=== PATIENT | female | born 1975 | race Caucasian/White ===

== ENCOUNTER → 2018-10-03 | Outpatient (CLI) | payer OTHER ==
[~2018-10-03] MED LIST: GADOBUTROL 7.5 MMOL/7.5 ML PFS ONE
== END | disposition home or self-care (01) ==
LOC: CFH 08:06
PROVIDERS: ATTEND Family Medicine
DX: G93.89 Other specified disorders of brain (principal); J34.1 Cyst and mucocele of nose and nasal sinus; M79.601 Pain in right arm
CPT/HCPCS: 70553; A9585

== ENCOUNTER → 2018-10-04 | Outpatient (CLI) | payer OTHER ==
[~2018-10-04] MED LIST changes: -GADOBUTROL 7.5 MMOL/7.5 ML PFS ONE; +OMNIPAQUE 350 MG/ML, 100ML BOTTLE ONE
== END | disposition home or self-care (01) ==
LOC: RAD 11:21
PROVIDERS: ATTEND Family Medicine
DX: R29.898 Other symptoms and signs involving the musculoskeletal system (principal)
CPT/HCPCS: 70496; 70498; Q9967

== ENCOUNTER 2018-10-31 05:59 | Day surgery (SDC) | payer OTHER ==
[~2018-10-31] VITALS: Ht 162.6 cm; Wt 62.0 kg
[2018-10-31 06:45] VITALS: BP 102/65
[2018-10-31] MEDS ORDERED: SODIUM CHLORIDE 0.9% 1,000 ML IV SCH (06:52)
[2018-10-31] MEDS ORDERED: LIDOCAINE-MPF 1%, 5ML ONE (08:05)
[2018-10-31 11:14] LABS: GLUCOSE, CSF 47 mg/dL (40-80); TOTAL PROTEIN,CSF 35 mg/dL (15-45)
== END 2018-10-31 12:55 | disposition home or self-care (01) ==
LOC: OUT 05:59
PROVIDERS: ATTEND Specialist
DX: G35 Multiple sclerosis (principal); J45.909 Unspecified asthma, uncomplicated; Z86.73 Personal history of transient ischemic attack (TIA), and cerebral infarction without residual deficits
CPT/HCPCS: 36415; 62270; 77003; 82040; 82042; 82164; 82784; 82945; 83873; 84157; 86316; 86592; 86645; 86695; 86696; 86762; 86777; 86778; 86790; 87070; 87205; 87476; 87529; 87798; 88108; 89051; J7030

== ENCOUNTER 2019-05-15 17:33 | Inpatient (IN) | payer OTHER ==
[~2019-05-15] VITALS: Ht 162.6 cm; Wt 61.2 kg
[~2019-05-15 17:33] MED LIST changes: +FAMO-79 PO; +FAMO40TA61 PO; +LORA1TAB46 PO; +MULT-658 PO; -OMNIPAQUE 350 MG/ML, 100ML BOTTLE ONE; +UBID1CAP53 PO
--- NOTE | 2019-05-15 17:54 | NUR ---
FIRST CONTACT WITH PT. PT C/O PROGRESSIVE WEAKNESS IN LEGS, SOTO, "CANT WALK FOR 5 MIN" PT'S AOX4. RESPS EVEN AND UNLABORED. BP/SPO2 MONITORS IN PLACE. CALL LIGHT WITHIN REACH. EDMD AT BEDSIDE TO EVALUATE AT THIS TIME.
--- NOTE | 2019-05-15 17:58 | NUR ---
PT AMB TO [facility] STEADY GAIT FOR UA.
--- NOTE | 2019-05-15 18:00 | NUR ---
PT IS NOT ABLE TO PROVIDE URINE SAMPLE AT THIS TIME. PT AWARES OF UA.
[2019-05-15 18:33] LABS: ALANINE AMINOTRANSFERASE 18 U/L (12-78); ALBUMIN 3.8 g/dL (3.4-5.0); ANION GAP 6 mmol/L (5-15); C-REACTIVE PROTEIN, QUANT 0.04 mg/dL (0.02-0.49); CALCIUM 8.7 mg/dL (8.5-10.1); CHLORIDE 109 mmol/L (98-107)
[2019-05-15 18:36] LABS: ALKALINE PHOSPHATASE 50 U/L (45-117); BILIRUBIN,TOTAL 0.2 mg/dL (0.2-1.0); CREATININE 0.98 mg/dL (0.55-1.02)
[2019-05-15 18:39] LABS: BASOPHILS # (AUTO) 0.05 x10^3/uL (0-0.1); BASOPHILS % (AUTO) 1 % (0-1); EOSINOPHILS # (AUTO) 0.14 x10^3/uL (0-0.4); EOSINOPHILS % (AUTO) 2 % (1-7); LYMPHOCYTES # (AUTO) 1.74 x10^3/uL (1-3.4); LYMPHOCYTES % (AUTO) 22 % (22-44); MD NO; MEAN CORPUSCULAR HEMOGLOBIN 30.7 pg (27.0-34.8); MEAN CORPUSCULAR HGB CONC 32.7 g/dL (32.4-35.8); MEAN CORPUSCULAR VOLUME 93.9 fL (80-100); MEAN PLATELET VOLUME 9.6 fL (7.4-10.4); MONOCYTES # (AUTO) 0.47 x10^3/uL (0.2-0.8); MONOCYTES % (AUTO) 6 % (2-9); NEUTROPHILS # (AUTO) 5.63 x10^3/uL (1.8-6.8); NEUTROPHILS % (AUTO) 70 % (42-75); PLATELET COUNT 231 x10^3/uL (130-400); RED BLOOD COUNT 4.62 x10^6/uL (3.82-5.3); RED CELL DISTRIBUTION WIDTH 13.4 % (9.6-15.2)
[2019-05-15 18:41] LABS: FREE T4 (FREE THYROXINE) 1.01 ng/dL (0.76-1.46)
--- NOTE | 2019-05-15 18:57 | NUR ---
REPORT GIVEN TO XANDER KUMAR.
--- NOTE | 2019-05-15 19:20 | NUR ---
HOSPITALIST AT BEDSIDE TO ADMIT PT
[2019-05-15 19:44] LABS: HCT (SEDRATE) 43.6 % (34.6-47.8)
[2019-05-15] MEDS ORDERED: ONDANSETRON ODT 4 MG PO PRN (20:00)
[2019-05-15] MEDS ORDERED: ACETAMINOPHEN 325 MG TABLET PO PRN (20:00)
[2019-05-15] MEDS ORDERED: DOCUSATE 100 MG CAPSULE PO PRN (20:00)
[2019-05-15] MEDS ORDERED: TEMAZEPAM 15 MG CAPSULE PO PRN (20:00)
--- NOTE | 2019-05-15 20:22 | NUR ---
REPORT CALLED TO FLOOR RN. ALL QUESTIONS ADDRESSED AT THIS TIME
[2019-05-15 20:35] VITALS: BP 120/78
[2019-05-15] MEDS ORDERED: LIDODERM 5% PATCH TD PRN (21:00)
[2019-05-15 22:42] LABS: MICROSCOPIC AUTO
[2019-05-15 22:43] LABS: CULTURE INDICATED? NO
[2019-05-15 22:57] LABS: AMPHETAMINE SCREEN, URINE Negative (Negative); BARBITURATE SCREEN, URINE Negative (Negative); BENZODIAZEPINE SCREEN, URINE Negative (Negative); CANNABINOID SCREEN, URINE Negative (Negative); COCAINE SCREEN, URINE Negative (Negative); METHADONE SCREEN, URINE Negative (Negative); OPIATE SCREEN, URINE Negative (Negative)
[2019-05-16 04:00] VITALS: BP 126/64
[2019-05-16 06:01] LABS: CHLORIDE 111 mmol/L (98-107)
[2019-05-16 06:12] LABS: BASOPHILS # (AUTO) 0.04 x10^3/uL (0-0.1); BASOPHILS % (AUTO) 1 % (0-1); EOSINOPHILS # (AUTO) 0.19 x10^3/uL (0-0.4); EOSINOPHILS % (AUTO) 3 % (1-7); LYMPHOCYTES # (AUTO) 2.04 x10^3/uL (1-3.4); LYMPHOCYTES % (AUTO) 33 % (22-44); MD NO; MEAN CORPUSCULAR HEMOGLOBIN 30.6 pg (27.0-34.8); MEAN CORPUSCULAR HGB CONC 32.5 g/dL (32.4-35.8); MEAN CORPUSCULAR VOLUME 94.3 fL (80-100); MEAN PLATELET VOLUME 9.6 fL (7.4-10.4); MONOCYTES # (AUTO) 0.51 x10^3/uL (0.2-0.8); MONOCYTES % (AUTO) 8 % (2-9); NEUTROPHILS # (AUTO) 3.41 x10^3/uL (1.8-6.8); NEUTROPHILS % (AUTO) 55 % (42-75); PLATELET COUNT 200 x10^3/uL (130-400); RED BLOOD COUNT 4.67 x10^6/uL (3.82-5.3); RED CELL DISTRIBUTION WIDTH 13.2 % (9.6-15.2)
[2019-05-16 06:14] LABS: ANION GAP 7 mmol/L (5-15); CALCIUM 8.8 mg/dL (8.5-10.1); CREATININE 0.89 mg/dL (0.55-1.02)
[2019-05-16 06:44] VITALS: BP 123/72
[2019-05-16] MEDS ORDERED: methylPREDNISolone SOD SUCC 40 MG/ML IV SCH (10:30)
[2019-05-16] MEDS ORDERED: GADOTERATE 10 MMOL/20 ML SYR ONE (13:58)
[2019-05-16 15:23] VITALS: BP 114/74
[2019-05-16] MEDS ORDERED: FAMOTIDINE 20 MG TABLET PO PRN (19:30)
[2019-05-16 19:52] VITALS: BP 104/68
[2019-05-17 04:36] VITALS: BP 106/70
[2019-05-17 07:56] VITALS: BP 108/68
[2019-05-17 13:07] VITALS: BP 105/67
[2019-05-17] MEDS ORDERED: METH1000 IV (14:52)
[2019-05-17 16:10] VITALS: BP 111/61
[2019-05-17] MEDS ORDERED: FAMOTIDINE 20 MG TABLET PO PRN (16:30)
== END 2019-05-17 16:25 | disposition home or self-care (01) | DRG 60 ==
LOC: ED 18:56 → EDIP 19:46 → 4NE 20:30
PROVIDERS: ADMIT Internal Medicine; ATTEND Internal Medicine
DX: G35 Multiple sclerosis (principal); J45.909 Unspecified asthma, uncomplicated; Z82.61 Family history of arthritis; Z83.3 Family history of diabetes mellitus; G37.9 Demyelinating disease of central nervous system, unspecified; Z88.8 Allergy status to other drugs, medicaments and biological substances; K21.9 Gastro-esophageal reflux disease without esophagitis
CPT/HCPCS: 36415; 70553; 80048; 80053; 80307; 81001; 83516; 83520; 83735; 84439; 84443; 84703; 85025; 85651; 86038; 86140; 86160; 86225; 86235; 86255; 86256; 86376; 86430; G0378; J2930; A9575

== ENCOUNTER 2019-11-23 11:10 | Outpatient (CLI) | payer OTHER ==
[~2019-11-23 11:10] MED LIST changes: +METH1000 IV
[2019-11-23 11:32] LABS: BASOPHILS # (AUTO) 0.06 x10^3/uL (0-0.1); BASOPHILS % (AUTO) 1 % (0-1); EOSINOPHILS % (AUTO) 2 % (1-7); LYMPHOCYTES # (AUTO) 1.33 x10^3/uL (1-3.4); LYMPHOCYTES % (AUTO) 26 % (22-44); MD NO; MEAN CORPUSCULAR HEMOGLOBIN 29.7 pg (27.0-34.8); MEAN CORPUSCULAR HGB CONC 33.5 g/dL (32.4-35.8); MEAN CORPUSCULAR VOLUME 88.6 fL (80-100); MEAN PLATELET VOLUME 8.9 fL (7.4-10.4); MONOCYTES % (AUTO) 10 % (2-9); NEUTROPHILS # (AUTO) 3.07 x10^3/uL (1.8-6.8); NEUTROPHILS % (AUTO) 61 % (42-75); PLATELET COUNT 274 x10^3/uL (130-400); RED BLOOD COUNT 4.62 x10^6/uL (3.82-5.3); RED CELL DISTRIBUTION WIDTH 13.9 % (9.6-15.2)
[2019-11-23 12:26] LABS: ALBUMIN 3.8 g/dL (3.4-5.0); ANION GAP 7 mmol/L (5-15); CALCIUM 8.7 mg/dL (8.5-10.1); CHLORIDE 107 mmol/L (98-107)
[2019-11-23 12:35] LABS: ALANINE AMINOTRANSFERASE 27 U/L (12-78); ALKALINE PHOSPHATASE 46 U/L (45-117); BILIRUBIN,TOTAL 0.7 mg/dL (0.2-1.0); CHOL/HDL RATIO 2.8; CHOLESTEROL, TOTAL 201 mg/dL (140-239); CREATININE 1.13 mg/dL (0.55-1.02); FREE T4 (FREE THYROXINE) 1.14 ng/dL (0.76-1.46); HDL CHOL % 36 % (28-40); HDL CHOLESTEROL (DIRECT) 73 mg/dL (40-60); LDL CHOLESTEROL,CALCULATED 116 mg/dL (54-169); LDL/HDL RATIO 1.6 (0.5-3.0); TOTAL PROTEIN 6.9 g/dL (6.4-8.2); TRIGLYCERIDES 61 mg/dL (50-200); VLDL CHOLESTEROL 12 mg/dL (0-25)
== END 2019-11-23 23:59 | disposition home or self-care (01) ==
LOC: LAB 11:10
PROVIDERS: ATTEND Family Medicine
DX: Z13.220 Encounter for screening for lipoid disorders (principal); Z13.1 Encounter for screening for diabetes mellitus; Z01.419 Encounter for gynecological examination (general) (routine) without abnormal findings; Z11.51 Encounter for screening for human papillomavirus (HPV); Z11.3 Encounter for screening for infections with a predominantly sexual mode of transmission; M62.81 Muscle weakness (generalized)
CPT/HCPCS: 36415; 80053; 80061; 82175; 82570; 83655; 83825; 84439; 84443; 85025; 86592; 86803; 87806; G0475

== ENCOUNTER → 2020-02-23 | Outpatient (CLI) | payer OTHER | END | disposition home or self-care (01) | LOC: CVU 10:15 | PROVIDERS: ATTEND Family Medicine | DX: M62.81 Muscle weakness (generalized) (principal); R20.9 Unspecified disturbances of skin sensation; R29.898 Other symptoms and signs involving the musculoskeletal system; R90.89 Other abnormal findings on diagnostic imaging of central nervous system | CPT/HCPCS: 93306 ==

== ENCOUNTER → 2020-10-24 | Outpatient (CLI) | payer OTHER ==
[2020-10-24 14:08] LABS: BASOPHILS % (AUTO) 1 % (0-1); EOSINOPHILS % (AUTO) 1 % (1-7); LYMPHOCYTES % (AUTO) 21 % (22-44); MEAN CORPUSCULAR HEMOGLOBIN 29.3 pg (27.0-34.8); MEAN CORPUSCULAR HGB CONC 33.2 g/dL (32.4-35.8); MEAN PLATELET VOLUME 8.9 fL (7.4-10.4); MONOCYTES % (AUTO) 8 % (2-9); NEUTROPHILS % (AUTO) 69 % (42-75); PLATELET COUNT 272 x10^3/uL (130-400); RED BLOOD COUNT 4.84 x10^6/uL (3.82-5.3); RED CELL DISTRIBUTION WIDTH 14.9 % (9.6-15.2)
[2020-10-24 14:09] LABS: MD NO
[2020-10-24 14:18] LABS: CHLORIDE 108 mmol/L (98-107)
[2020-10-24 14:27] LABS: ALANINE AMINOTRANSFERASE 18 U/L (12-78); ALBUMIN 3.8 g/dL (3.4-5.0); ALKALINE PHOSPHATASE 58 U/L (45-117); ANION GAP 6 mmol/L (5-15); BILIRUBIN,TOTAL 0.3 mg/dL (0.2-1.0); CREATININE 1.08 mg/dL (0.55-1.02); TOTAL PROTEIN 7.1 g/dL (6.4-8.2)
[2020-10-24 14:50] LABS: HCT (SEDRATE) 42.6 % (34.6-47.8)
== END | disposition home or self-care (01) ==
LOC: LAB 13:38
PROVIDERS: ATTEND Dermatology
DX: L30.9 Dermatitis, unspecified (principal)
CPT/HCPCS: 36415; 80053; 83520; 84703; 85025; 85651; 86038; 86063; 86480

== ENCOUNTER 2021-02-25 06:56 | Outpatient (CLI) | payer OTHER | END 2021-02-25 23:59 | disposition home or self-care (01) | LOC: CFH 06:56 | PROVIDERS: ATTEND Family Medicine | DX: N63.41 Unspecified lump in right breast, subareolar (principal); N64.9 Disorder of breast, unspecified | CPT/HCPCS: 76642; 77062; 77066; G0279 ==